=== PATIENT | female | born 1975 | race American Indian/Alaskan Native ===

== ENCOUNTER 2022-01-12 08:25 | Observation (INO) | payer MEDICARE ==
[2022-01-12] MEDS ORDERED: diphenhydrAMINE 25 MG/10 ML ORAL LIQUID PO ONE (08:44)
[2022-01-12] MEDS ORDERED: METOCLOPRAMIDE 10 MG TAB PO ONE (08:44)
--- NOTE | 2022-01-12 08:45 | Emergency Department Report ---
ED General Adult HPI - General Chief complaint: Dyspnea/Respdistress Stated complaint: Shortness of breath weakness, spitting up blood Time Seen by Provider: 01/12/22 08:37 Source: patient, EMS ( EMS documentation not available at time of chart d ictation ), RN notes reviewed, old records reviewed Mode of arrival: Stretcher Limitations: Physical Limitation - History of Present Illness Initial comments: The patient was evaluated in the emergency department for symptoms described in the history of present illness. He/she was evaluated in the context of the global COVID-19 pandemic, which necessitated consideration that the patient might be at risk for infection with the virus that causes COVID-19. Institutional protocols and algorithms that pertain to the evaluation of patients at risk for COVID-19 are in a state of rapid change based on inform ation released by regulatory bodies including the CDC and federal and state organizations. These policies and algorithms were followed during the patient's care in the emergency department. Please note that these policies, procedures and recommendations changed on a rapid basis. Nephrology: Dr. Hines/ Jonn Past medical history: End-stage renal disease on hemodialysis, Wednesday, , Wednesday, last dialysis session this past , anemia, hypertension, left upper extremity fistula, patient reports that she is not . The patient is a 46-year-old female presenting to the ER today with a complaint of shortness of breath, cramping, mild headache, weakness, and coughing up or spitting up of blood. She denies bright red blood per rectum. She denies hematemesis. She does not make urine. She was last dialyzed on , and it is currently Wednesday. She is agreeable to packed red blood cell transfusion. She reports that she feels similar to prior episodes of symptomatic anemia. She reports that she has received her COVID-19 vaccination. No fever. -: Gradual Location: head, back, left, right, upper extremity, lower extremity Severity scale (0 -10): 0 Quality: aching Consistency: intermittent Improves with: movement, rest - Related Data Home Medications Medication Instructions Recorded Confirmed Last Taken Ondansetron [Zofran TAB] 4 mg PO Q8HR PRN 03/10/14 01/13/22 Unknown Aspirin [Adult Aspirin] 81 mg PO QDAY 01/13/22 01/13/22 01/11/22 Escitalopram [Lexapro] 10 mg PO DAILY 01/13/22 01/13/22 01/11/22 Loratadine [Claritin] 10 mg PO QDAY 01/13/22 01/13/22 01/11/22 Zolpidem Tartrate 10 mg PO QHS 01/13/22 01/13/22 01/11/22 Previous Rx's Medication Instructions Recorded Last Taken Type NIFEdipine XL [Procardia Xl] 60 mg PO QDAY@0600 #30 tablet 01/13/22 Unknown Rx Nicotine [Habitrol] 14 mg TD DAILY #30 patch 01/13/22 Unknown Rx hydrALAZINE [Apresoline TAB] 100 mg PO Q8H #90 tab 01/13/22 Unknown Rx labetaloL [Labetalol 200mg TAB] 200 mg PO QID 30 Days #120 tablet 01/13/22 Unknown Rx Allergies Allergy/AdvReac Type Severity Reaction Status Date / Time acetaminophen [From Percocet] Allergy Severe Itching Verified 01/13/22 12:41 blueberry Allergy Severe Hives Verified 01/13/22 12:41 oxycodone HCl [From Percocet] Allergy Severe Itching Verified 01/13/22 12:41 ED Review of Systems ROS: Stated complaint: SOB/HYPERGLYCEMIA Other details as noted in HPI Constitutional: malaise, weakness. denies: fever Eyes: denies: eye discharge, vision change ENT: denies: epistaxis Respiratory: orthopnea, shortness of breath. denies: cough Cardiovascular: edema. denies: chest pain Gastrointestinal: denies: abdominal pain, nausea, vomiting, hematemesis, melena, hematochezia Genitourinary: denies: dysuria Musculoskeletal: arthralgia, myalgia Neurological: headache, weakness Hematological/Lymphatic: denies: easy bleeding ED Past Medical Hx - Past Medical History Hx Congestive Heart Failure: Yes Hx Renal Disease: Yes - Surgical History Past Surgical History?: No - Social History Smoking Status: Never Smoker - Medications Home Medications: Home Medications Medication Instructions Recorded Confirmed Last Taken Type Ondansetron [Zofran TAB] 4 mg PO Q8HR PRN 03/10/14 01/13/22 Unknown History Aspirin [Adult Aspirin] 81 mg PO QDAY 01/13/22 01/13/22 01/11/22 History Escitalopram [Lexapro] 10 mg PO DAILY 01/13/22 01/13/22 01/11/22 History Loratadine [Claritin] 10 mg PO QDAY 01/13/22 01/13/22 01/11/22 History NIFEdipine XL [Procardia Xl] 60 mg PO QDAY@0600 #30 tablet 01/13/22 Unknown Rx Nicotine [Habitrol] 14 mg TD DAILY #30 patch 01/13/22 Unknown Rx Zolpidem Tartrate 10 mg PO QHS 01/13/22 01/13/22 01/11/22 History hydrALAZINE [Apresoline TAB] 100 mg PO Q8H #90 tab 01/13/22 Unknown Rx labetaloL [Labetalol 200mg TAB] 200 mg PO QID 30 Days #120 tablet 01/13/22 Unknown Rx ED Physical Exam - General Limitations: Physical Limitation General appearance: alert, anxious, in distress - Head Head exam: Present: atraumatic, normocephalic - Eye Eye exam: Present: normal appearance, EOMI. Absent: nystagmus - ENT ENT exam: Present: normal exam, normal orophraynx, mucous membranes moist, normal external ear exam - Neck Neck exam: Present: normal inspection, full ROM. Absent: tenderness, mening ismus - Respiratory Respiratory exam: Present: respiratory distress, rales, accessory muscle use. Absent: wheezes, rhonchi, stridor - Cardiovascular Cardiovascular Exam: Present: regular rate, normal rhythm, normal heart sounds. Absent: bradycardia, tachycardia, irregular rhythm, systolic murmur, diastolic murmur, rubs, gallop - GI/Abdominal GI/Abdominal exam: Present: soft. Absent: distended, tenderness, guarding, rebound, rigid, pulsatile mass - Extremities Exam Extremities exam: Present: normal inspection (There is a left upper extremity fistula with an appropriate thrill.), full ROM, pedal edema, other (2+ pulses noted in the bilateral upper and lower extremities. There is no palpable cord. negative Homans sign. Muscular compartments are soft. The pelvis is stable.). Absent: calf tenderness - Back Exam Back exam: Present: normal inspection. Absent: tenderness, CVA tenderness (R), CVA tenderness (L), paraspinal tenderness, vertebral tenderness - Neurological Exam Neurological exam: Present: alert, oriented X3, other (No facial droop. Tongue midline. Extraocular movements intact bilaterally. Facial sensation intact to light touch in V1, V2, V3 distribution bilaterally. 5 and a 5 strength in 4 extremities. Sensation intact to light touch in 4 extremities.). Absent: motor sensory deficit - Psychiatric Psychiatric exam: Present: normal affect, normal mood, anxious - Skin Skin exam: Present: warm, dry, intact, normal color. Absent: rash ED Course Vital Signs 01/12/22 01/12/22 01/12/22 08:30 08:31 08:46 Temperature Pulse Rate 77 77 79 Respiratory 24 16 19 Rate Blood Pressure 190/90 Blood Pressure 190/90 [Left] O2 Sat by Pulse 100 100 100 Oximetry O2 Sat by Pulse Oximetry [ Throughout] 01/12/22 01/12/22 01/12/22 08:52 09:00 09:16 Temperature 98.2 F Pulse Rate 77 76 Respiratory 27 H 28 H Rate Blood Pressure 190/90 190/90 Blood Pressure [Left] O2 Sat by Pulse 98 99 Oximetry O2 Sat by Pulse Oximetry [ Throughout] 01/12/22 01/12/22 01/12/22 09:30 09:46 10:00 Temperature Pulse Rate 75 73 70 Respiratory 23 22 19 Rate Blood Pressure 190/90 190/90 158/78 Blood Pressure [Left] O2 Sat by Pulse 100 100 100 Oximetry O2 Sat by Pulse Oximetry [ Throughout] 01/12/22 01/12/22 01/12/22 10:16 10:30 10:46 Temperature Pulse Rate Respiratory 45 H Rate Blood Pressure 145/61 145/60 121/50 Blood Pressure [Left] O2 Sat by Pulse 100 99 100 Oximetry O2 Sat by Pulse Oximetry [ Throughout] 01/12/22 01/12/22 01/12/22 11:00 11:16 11:30 Temperature Pulse Rate 69 70 69 Respiratory 21 20 18 Rate Blood Pressure 122/55 126/54 123/63 Blood Pressure [Left] O2 Sat by Pulse 100 100 100 Oximetry O2 Sat by Pulse Oximetry [ Throughout] 01/12/22 01/12/22 01/12/22 11:31 11:46 12:00 Temperature Pulse Rate 70 72 77 Respiratory 19 16 Rate Blood Pressure 123/63 129/53 122/50 Blood Pressure [Left] O2 Sat by Pulse 100 100 Oximetry O2 Sat by Pulse Oximetry [ Throughout] 01/12/22 01/12/2222 12:15 12:43 12:46 Temperature Pulse Rate 76 Respiratory 20 Rate Blood Pressure 132/57 132/57 145/58 Blood Pressure [Left] O2 Sat by Pulse 97 91 96 Oximetry O2 Sat by Pulse Oximetry [ Throughout] 01/12/22 01/12/22 01/12/22 13:00 13:16 13:30 Temperature Pulse Rate 74 71 71 Respiratory 18 19 18 Rate Blood Pressure 162/77 138/67 146/62 Blood Pressure [Left] O2 Sat by Pulse 100 100 100 Oximetry O2 Sat by Pulse Oximetry [ Throughout] 01/12/22 01/12/22 01/12/22 13:45 14:00 14:16 Temperature Pulse Rate 71 70 70 Respiratory 18 18 19 Rate Blood Pressure 129/57 134/58 129/57 Blood Pressure [Left] O2 Sat by Pulse 100 100 100 Oximetry O2 Sat by Pulse Oximetry [ Throughout] 01/12/22 01/12/22 01/12/22 14:30 14:46 15:00 Temperature Pulse Rate 75 77 76 Respiratory 17 19 21 Rate Blood Pressure 128/57 152/71 Blood Pressure [Left] O2 Sat by Pulse 100 100 100 Oximetry O2 Sat by Pulse Oximetry [ Throughout] 01/12/22 01/12/22 01/12/22 15:15 15:31 15:45 Temperature Pulse Rate 80 82 79 Respiratory 14 16 19 Rate Blood Pressure 156/68 189/86 Blood Pressure [Left] O2 Sat by Pulse 100 100 99 Oximetry O2 Sat by Pulse Oximetry [ Throughout] 01/12/22 01/12/22 01/12/22 16:01 16:15 16:31 Temperature Pulse Rate 80 82 77 Respiratory 19 24 21 Rate Blood Pressure 167/78 176/81 160/62 Blood Pressure [Left] O2 Sat by Pulse 100 61 L 93 Oximetry O2 Sat by Pulse Oximetry [ Throughout] 01/12/22 01/12/22 01/12/22 16:50 17:00 17:15 Temperature 98.2 F Pulse Rate 74 74 74 Respiratory 18 Rate Blood Pressure 160/80 160/80 163/76 Blood Pressure [Left] O2 Sat by Pulse Oximetry O2 Sat by Pulse 98 Oximetry [ Throughout] 01/12/22 01/12/22 01/12/22 17:30 17:45 18:00 Temperature Pulse Rate 72 75 74 Respiratory Rate Blood Pressure 149/72 152/73 159/79 Blood Pressure [Left] O2 Sat by Pulse Oximetry O2 Sat by Pulse Oximetry [ Throughout] 01/12/22 01/12/22 01/12/22 18:15 18:30 18:45 Temperature Pulse Rate 76 72 78 Respiratory Rate Blood Pressure 166/81 164/88 179/58 Blood Pressure [Left] O2 Sat by Pulse Oximetry O2 Sat by Pulse Oximetry [ Throughout] 01/12/22 01/12/22 19:00 19:15 Temperature Pulse Rate 71 76 Respiratory 18 Rate Blood Pressure 164/86 183/89 Blood Pressure [Left] O2 Sat by Pulse 98 Oximetry O2 Sat by Pulse Oximetry [ Throughout] - Reevaluation(s) Reevaluation #1: 01/12/22 09:38 Differential diagnosis, including but not limited to: Azotemia, uremia, metabolic acidosis, fluid overload, pneumonia, pneumonitis, bronchitis, reactive airways disease, symptomatic anemia Assessment and plan: 46-year-old female, who has missed a dialysis session, last dialyzed on , it is currently Wednesday, presenting with shortness of breath, possibly spitting up blood, without vomiting blood, or defecation of blood, generalized weakness, malaise and fatigue. Denies loss of taste and smell. She is COVID-[address] patient on conveyor monitor. Treat symptoms supportively and symptomatically. Obtain appropriate laboratory studies, EKG and chest x-ray. Anticipate discussion with nephrology on-call, once initial diagnostics have res ulted. I discussed this plan of care with the patient. She is agreeable to the plan of care. Reevaluation #2: 01/12/22 11:13 Patient seen and examined. Please note that secondary to technical issues with the lab, patient's chemistry had to be recollected. She is mildly anemic, but does not require packed red blood cell transfusion at this time. X-ray of the chest with nonspecific findings, uncertain if atelectatic changes versus pneumonia versus CHF. New medium sternotomy and valve prosthesis. New endovascular stent graft extending from the aortic arch to the proximal abdominal aorta. Mild cardiomegaly, improved since the prior exam. Normal pulmonary vasculature. LUNGS / PLEURA: Mild patchy subsegmental parenchymal disease in the left lower lung is new. The right lung is clear. No pleural effusion. No pneumothorax. We will obtain CT angiogram of the chest. We will do this to better delineate patient's pulmonary anatomy. Contacted nephrology on-call, Dr. Cherry Discussed the patient's history, physical, laboratory studies and imaging studies and clinical impression. Nephrology will follow in consultation. Emergency room follow along as the patient CT scan results. 01/12/22 11:15 Reevaluation #3: 01/12/22 12:44 I received a call from the senior nuclear medicine technologist that the patient has a change in mental status while on the CAT scan table, after her CT scan chest. I went back emergently to evaluate the patient. She is awake and confused, and making nonsensical myoclonic jerking movements. An emergent CT scan of the brain is obtained to exclude bleed. I do not appreciate a bleed. A stat Accu-Chek read very low. Patient received 2 A of D50, with immediate resolution of symptoms. Patient is now awake, alert, and following commands. Every hour Accu-Cheks ordered. Start D10 drip. Awaiting CT scan interpretation. Patient reports that she does not take hypoglycemic medications. 01/12/22 13:31 Repeat Accu-Chek is improved. CT scan brain negative for acute findings. CT scan chest shows no obvious pulmonary embolism. Aspiration pneumonia/pneumonitis is suggested. I received a verbal report from the interpreting radiologist. Hospital physician, Dr. Mayela Metcalf to admit to [facility] 01/12/22 14:33 I received another call from interpreting radiologist, Dr. Anne. He advises an addendum to previous verbal interpretation. He corrects initial interpretation, and states that there is no pneumonitis, no aspiration, no pulmonary embolism, and only atelectatic changes. We will therefore cancel blood cultures and lactic acid. Patient still requires admission for hypoglycemia. Patient received antibiotics dose x1. Defer to inpatient team to further manage and evaluate ED Medical Decision Making - Lab Data Result diagrams: 01/13/22 03:39 01/13/22 03:39 Vital Signs 01/12/22 01/12/22 08:30 08:52 Temperature 98.2 F Pulse Rate 77 Respiratory 24 Rate Blood Pressure 190/90 [Left] O2 Sat by Pulse 100 Oximetry Lab Results 01/12/22 01/12/22 01/12/22 Range/Units 09:18 09:18 10:10 WBC 8.8 (4.5-11.0) K/mm3 RBC 2.76 L (3.65-5.03) M/mm3 Hgb 8.8 L (10.1-14.3) gm/dl Hct 26.6 L (30.3-42.9) % MCV 96 (79-97) fl MCH 32 (28-32) pg MCHC 33 (30-34) % RDW 17.6 H (13.2-15.2) % Plt Count 292 (140-440) K/mm3 Add Manual Diff Complete Total Counted 100 Seg Neutrophils % Employment Service Specialist Seg Neuts % (Manual) 90.0 H (40.0-70.0) % Band Neutrophils % 0 % Lymphocytes % (Manual) 3.0 L (13.4-35.0) % Reactive Lymphs % (Man) 0 % Monocytes % (Manual) 7.0 (0.0-7.3) % Eosinophils % (Manual) 0 (0.0-4.3) % Basophils % (Manual) 0 (0.0-1.8) % Metamyelocytes % 0 % Myelocytes % 0 % Promyelocytes % 0 % Blast Cells % 0 % Nucleated RBC % Not Reportable Seg Neutrophils # Man 7.9 H (1.8-7.7) K/mm3 Band Neutrophils # 0.0 K/mm3 Lymphocytes # (Manual) 0.3 L (1.2-5.4) K/mm3 Abs React Lymphs (Man) 0.0 K/mm3 Monocytes # (Manual) 0.6 (0.0-0.8) K/mm3 Eosinophils # (Manual) 0.0 (0.0-0.4) K/mm3 Basophils # (Manual) 0.0 (0.0-0.1) K/mm3 Metamyelocytes # 0.0 K/mm3 Myelocytes # 0.0 K/mm3 Promyelocytes # 0.0 K/mm3 Blast Cells # 0.0 K/mm3 WBC Morphology Not Reportable Hypersegmented Neuts Not Reportable Hyposegmented Neuts Not Reportable Hypogranular Neuts Not Reportable Smudge Cells Not Reportable Toxic Granulation Not Reportable Toxic Vacuolation Not Reportable Dohle Bodies Not Reportable Pelger-Huet Anomaly Not Reportable Farrukh Rods Not Reportable Platelet Estimate Consistent w auto Clumped Platelets Not Reportable Plt Clumps, EDTA Not Reportable Large Platelets Rare Giant Platelets Not Reportable Platelet Satelliting Not Reportable Plt Morphology Comment Not Reportable RBC Morphology Not Reportable Dimorphic RBCs Not Reportable Polychromasia Rare Hypochromasia 1+ Poikilocytosis Rare Anisocytosis Rare Microcytosis Not Reportable Macrocytosis Not Reportable Spherocytes Not Reportable Pappenheimer Bodies Not Reportable Sickle Cells Not Reportable Target Cells Not Reportable Tear Drop Cells Not Reportable Ovalocytes Rare Helmet Cells Not Reportable [place] Bodies Not Reportable [place] Rings Not Reportable Kristie Cells Not Reportable Bite Cells Not Reportable Crenated Cell Not Reportable Elliptocytes Not Reportable Acanthocytes (Spur) Rare Rouleaux Not Reportable Hemoglobin C Crystals Not Reportable Schistocytes Not Reportable Malaria parasites Not Reportable Syed Bodies Not Reportable Hem Pathologist Commnt No PT 14.1 (12.2-14.9) Sec. INR 0.98 (0.87-1.13) APTT 30.2 (24.2-36.6) Sec. Sodium TNR Potassium TNR Chloride TNR Carbon Dioxide TNR Anion Gap TNR BUN TNR Creatinine TNR Estimated GFR TNR BUN/Creatinine Ratio TNR Glucose TNR Calcium TNR Magnesium TNR Total Bilirubin TNR AST TNR ALT TNR Alkaline Phosphatase TNR Total Creatine Kinase Troponin T TNR NT-Pro-B Natriuret Pep TNR Total Protein TNR Albumin TNR Albumin/Globulin Ratio TNR Blood Type Antibody Screen 01/12/22 01/12/22 Range/Units 10:10 10:56 WBC (4.5-11.0) K/mm3 RBC (3.65-5.03) M/mm3 Hgb (10.1-14.3) gm/dl Hct (30.3-42.9) % MCV (79-97) fl MCH (28-32) pg MCHC (30-34) % RDW (13.2-15.2) % Plt Count (140-440) K/mm3 Add Manual Diff Total Counted Seg Neutrophils % Seg Neuts % (Manual) (40.0-70.0) % Band Neutrophils % % Lymphocytes % (Manual) (13.4-35.0) % Reactive Lymphs % (Man) % Monocytes % (Manual) (0.0-7.3) % Eosinophils % (Manual) (0.0-4.3) % Basophils % (Manual) (0.0-1.8) % Metamyelocytes % % Myelocytes % % Promyelocytes % % Blast Cells % % Nucleated RBC % Seg Neutrophils # Man (1.8-7.7) K/mm3 Band Neutrophils # K/mm3 Lymphocytes # (Manual) (1.2-5.4) K/mm3 Abs React Lymphs (Man) K/mm3 Monocytes # (Manual) (0.0-0.8) K/mm3 Eosinophils # (Manual) (0.0-0.4) K/mm3 Basophils # (Manual) (0.0-0.1) K/mm3 Metamyelocytes # K/mm3 Myelocytes # K/mm3 Promyelocytes # K/mm3 Blast Cells # K/mm3 WBC Morphology Hypersegmented Neuts Hyposegmented Neuts Hypogranular Neuts Smudge Cells Toxic Granulation Toxic Vacuolation Dohle Bodies Pelger-Huet Anomaly Farrukh Rods Platelet Estimate Clumped Platelets Plt Clumps, EDTA Large Platelets Giant Platelets Platelet Satelliting Plt Morphology Comment RBC Morphology Dimorphic RBCs Polychromasia Hypochromasia Poikilocytosis Anisocytosis Microcytosis Macrocytosis Spherocytes Pappenheimer Bodies Sickle Cells Target Cells Tear Drop Cells Ovalocytes Helmet Cells Snider-[place] Bodies [place] Rings [place] Cells Bite Cells Crenated Cell Elliptocytes Acanthocytes (Spur) Rouleaux Hemoglobin C Crystals Schistocytes Malaria parasites Syed Bodies Hem Pathologist Commnt PT (12.2-14.9) Sec. INR (0.87-1.13) APTT (24.2-36.6) Sec. Sodium 137 Potassium 3.5 L Chloride 96.5 L Carbon Dioxide 23 Anion Gap 21 BUN 54 H Creatinine 9.1 H Estimated GFR 6 BUN/Creatinine Ratio 6 Glucose 107 H Calcium 8.6 Magnesium 2.20 Total Bilirubin 0.40 AST 12 ALT 6 L Alkaline Phosphatase 92 Total Creatine Kinase Not Reportable Troponin T NT-Pro-B Natriuret Pep 53289 H Total Protein 8.1 Albumin 4.5 Albumin/Globulin Ratio 1.3 Blood Type O POSITIVE Antibody Screen Negative - EKG Data -: EKG Interpreted by Mi EKG shows normal: sinus rhythm Rate: normal - EKG Data 01/12/22 10:00 The EKG is interpreted at 09: 49 Motion artifact. Sinus rhythm 73 bpm. Normal axis, normal P wave axis, QTC is 4 9 7 ms. There is motion artifact. This is an abnormal EKG. This is not a STEMI. There is left ventricular hypertrophy/high left ventricular voltage - Radiology Data Radiology results: pending, report reviewed, image reviewed CHEST 1 VIEW 01/12/2022 9:13 AM INDICATION / CLINICAL INFORMATION: Dyspnea. COMPARISON: 03/10/14. FINDINGS: SUPPORT DEVICES: None. HEART / MEDIASTINUM: New medium sternotomy and valve prosthesis. New endovascular stent graft extending from the aortic arch to the proximal abdominal aorta. Mild cardiomegaly, improved since the prior exam. Normal pulmonary vasculature. LUNGS / PLEURA: Mild patchy subsegmental parenchymal disease in the left lower lung is new. The right lung is clear. No pleural effusion. No pneumothorax. ADDITIONAL FINDINGS: Mild elevation of the left hemidiaphragm is new. IMPRESSION: Mild elevation of the left hemidiaphragm and mild left basilar subsegmental atelectasis. Signer Name: Tank Anne MD Signed: 01/12/2022 9:21 AM Workstation Name: [id number] CT HEAD WITHOUT CONTRAST INDICATION / CLINICAL INFORMATION: Change in mental status, unresponsiveness. TECHNIQUE: All CT scans at this location are performed using CT dose reduction for ALARA by means of automated exposure control. COMPARISON: None available. FINDINGS: HEMORRHAGE: None. EXTRA-AXIAL SPACES: Normal in size and morphology for the patient's age. VENTRICULAR SYSTEM: Normal in size and morphology for the patient's age. CEREBRAL PARENCHYMA: No significant abnormality. No acute territorial infarct. MIDLINE SHIFT / HERNIATION: None. CEREBELLUM / BRAINSTEM: No significant abnormality. ORBITS: Normal as visualized. SOFT TISSUES: No significant abnormality. SKULL: No significant abnormality. PARANASAL SINUSES / MASTOID AIR CELLS: Normal as visualized. ADDITIONAL FINDINGS: Intravascular contrast is related to the earlier CTA of the chest. IMPRESSION: No acute intracranial abnormality. Signer Name: Tank Anne MD Signed: 01/12/2022 12:00 PM Critical Care Time: Yes Critical care time in (mins) excluding proc time.: 35 Critical care attestation.: If time is entered above; I have spent that time in minutes in the direct care of this critically ill patient, excluding procedure time. ED Disposition Clinical Impression: ESRD (end stage renal disease), Dyspnea, Hemoptysis, Hypertensive urgency, Hypoglycemia Anemia Qualifiers: Anemia type: due to chronic kidney disease Disposition: 09 ADMITTED INPATIENT Is pt being admited?: Yes Does the pt Need Aspirin: No Condition: Serious
[2022-01-12 09:43] LABS: Hematocrit 26.6 % (30.3-42.9); Hemoglobin 8.8 gm/dl (10.1-14.3); Mean Corpuscular HGB Conc 33 % (30-34); Mean Corpuscular Volume 96 fl (79-97); Platelet Count 292 K/mm3 (140-440); Red Blood Count 2.76 M/mm3 (3.65-5.03); Red Cell Distribution Width 17.6 % (13.2-15.2)
[2022-01-12 10:08] LABS: BUN/Creatinine Ratio TNR; Blood Urea Nitrogen TNR mg/dL (7-17); Calcium TNR mg/dL (8.4-10.2)
[2022-01-12 10:09] LABS: Alanine Aminotransferase TNR units/L (7-56); Albumin TNR g/dL (3.9-5); Hemolysis Index TNR
[2022-01-12 10:22] LABS: Basophils % (Manual) 0 % (0.0-1.8); Eosinophils % (Manual) 0 % (0.0-4.3); Total Cells Counted 100
--- NOTE | 2022-01-12 10:25 | XRay Report ---
CHEST 1 VIEW 01/12/2022 9:13 AM INDICATION / CLINICAL INFORMATION: Dyspnea. COMPARISON: 03/10/14. FINDINGS: SUPPORT DEVICES: None. HEART / MEDIASTINUM: New medium sternotomy and valve prosthesis. New endovascular stent graft extendi ng from the aortic arch to the proximal abdominal aorta. Mild cardiomegaly, improved since the prior exam. Normal pulmonary vasculature. LUNGS / PLEURA: Mild patchy subsegmental parenchymal disease in the left lower lung is new. The right lung is clear. No pleural effusion. No pneumothorax. ADDITIONAL FINDINGS: Mild elevation of the left hemidiaphragm is new. IMPRESSION: Mild elevation of the left hemidiaphragm and mild left basilar subsegmental atelectasis. Signer Name: Tank Anne MD Signed: 01/12/2022 10:21 AM Workstation Name: [id number]
[2022-01-12 10:27] LABS: Anisocytosis RARE; Hypochromasia 1+; Poikilocytosis Rare
[2022-01-12 10:28] LABS: Large Platelets Rare; Ovalocytes Rare; Platelet Estimate Consistent w Auto
[2022-01-12 10:38] LABS: INR 0.98 (0.87-1.13)
[2022-01-12 10:39] LABS: Partial Thromboplastin Time 30.2 Sec. (24.2-36.6)
[2022-01-12 11:06] LABS: Alanine Aminotransferase 6 units/L (7-56); BUN/Creatinine Ratio 6; Blood Urea Nitrogen 54 mg/dL (7-17); Calcium 8.6 mg/dL (8.4-10.2)
[2022-01-12 11:07] LABS: Albumin 4.5 g/dL (3.9-5); Hemolysis Index 8
[2022-01-12] MEDS ORDERED: hydrALAZINE 20 MG/1 ML INJ IV ONE (11:15)
[2022-01-12] MEDS ORDERED: DEXTROSE 50% IN WATER (25GM) 50 ML SYRINGE IV ONE ×2 (12:36→12:41)
[2022-01-12] MEDS: DEXTROSE 50% IN WATER (25GM) 50 ML SYRINGE IV PRN ×2 (12:49→22:34)
[2022-01-12] MEDS ORDERED: D10W 500 ML IV SOLN IV SCH (13:00)
[2022-01-12] MEDS ORDERED: DEXTROSE 10% IN WATER 1,000 ML IV SCH (13:00)
--- NOTE | 2022-01-12 13:04 | Cat Scan Report ---
CT HEAD WITHOUT CONTRAST INDICATION / CLINICAL INFORMATION: Change in mental status, unresponsiveness. TECHNIQUE: All CT scans at this location are performed using CT dose reduction for ALARA by means of automated exposure control. COMPARISON: None available. FINDINGS: HEMORRHAGE: None. EXTRA-AXIAL SPACES: Normal in size and morphology for the patient's age. VENTRICULAR SYSTEM: Normal in size and morphology for the patient's age. CEREBRAL PARENCHYMA: No significant abnormality. No acute territorial infarct. MIDLINE SHIFT / HERNIATION: None. CEREBELLUM / BRAINSTEM: No significant abnormality. ORBITS: Normal as visualized. SOFT TISSUES: No significant abnormality. SKULL: No significant abnormality. PARANASAL SINUSES / MASTOID AIR CELLS: Normal as visualized. ADDITIONAL FINDINGS: Intravascular contrast is related to the earlier CTA of the chest. IMPRESSION: No acute intracranial abnormality. Signer Name: Tank Anne MD Signed: 01/12/2022 1:00 PM Workstation Name: [id number]
[2022-01-12] MEDS ORDERED: PIPERACIL/TAZOBACTA 4.5/NS 100 4.5 GM/100 ML VIAL IV ONE (13:28)
[2022-01-12] MEDS ORDERED: DOXYCYCLINE HYCLATE 100 MG in SODIUM CHLORIDE 0.9% 250ML 250 ML IV ONE (14:30)
--- NOTE | 2022-01-12 14:38 | Cat Scan Report ---
CTA CHEST WITH CONTRAST INDICATION / CLINICAL INFORMATION: Dyspnea; spitting up blood. TECHNIQUE: Axial CT images were obtained through the chest after injection of 80 cc Omnipaque 350 IV contrast. 3 plane MIP and/or 3D reconstructions were produced. All CT scans at this location are perf ormed using CT dose reduction for ALARA by means of automated exposure control. COMPARISON: None available. FINDINGS: PULMONARY EMBOLUS: None. Good opacification of the pulmonary arterial system bilaterally without intr aluminal filling defect to suggest acute PTE. THORACIC AORTA: Endoluminal stent graft in the thoracic aorta with evidence of prior type B dissectio n. HEART: Moderate cardiomegaly. CORONARY ARTERY CALCIFICATION: Present -- Moderate. MEDIASTINUM / DANYEL: No significant abnormality. PLEURA: No pleural effusion. No pneumothorax. LUNGS: Mild subsegmental atelectasis in the left lung base. ADDITIONAL FINDINGS: None. UPPER ABDOMEN: No acute findings. SKELETAL STRUCTURES: No significant osseous abnormality. IMPRESSION: 1. No CT evidence for pulmonary embolism. 2. No acute findings. Signer Name: Tank Anne MD Signed: 01/12/2022 2:33 PM Workstation Name: [id number]
--- NOTE | 2022-01-12 16:06 | Consultation ---
History of Present Illness - Reason for Consult Consult date: 01/12/22 end stage renal disease - History of Present Illness This is a 46 y/o F with PMH of ESRD on HD, HTN, and anemia who presented to [facility] ([facility]) with c/o shortness of breath, altered mental status, fatigue, generalized weakness, headache, and spitting up blood. Pt seen in ED, lethargic, answers basic questions, but delayed response. Pt's friend states she noticed pt had blood on the outside of her mouth and on the bed with mucus in her nose and altered mental status. This pt undergoes OP HD at [facility], last HD treatment was 01/08/22, missed HD on Wednesday due to transportation per friend. Pt is followed by manager pediatric Dr Hines. Pt on D10 infusion. CXR showed mild elevation of left hemidiaphragm and mild left basilar subsegmental atelactasis. CTA chest IV contrast negative for PE, no acute findings. We were consulted to evaluate this pt who has ESRD. Pt had suspected seizure in the ED per friend and nurse Past History Past Medical History: anemia, dialysis, ESRD, hypertension Medications and Allergies Allergies Allergy/AdvReac Type Severity Reaction Status Date / Time acetaminophen [From Percocet] Allergy Itching Verified 01/12/22 09:20 oxycodone HCl [From Percocet] Allergy Itching Verified 01/12/22 09:20 Home Medications Medication Instructions Recorded Confirmed Last Taken Type Hydralazine HCl [hydrALAZINE] 100 mg PO TID 03/10/14 03/10/14 03/10/14 History Mag Hydrox/Aluminum Hyd/Simeth 30 ml PO QID #1 bottle 03/10/14 Unknown Rx [Maalox Advanced Suspension] NIFEdipine XL [Procardia Xl] 60 mg PO QDAY 03/10/14 03/10/14 03/09/14 History Omeprazole [Prilosec] 20 mg PO QDAY #30 capsule. 03/10/14 Unknown Rx Ondansetron [Zofran] 4 mg PO Q8HR PRN 03/10/14 03/10/14 Unknown History Promethazine [Phenergan] 25 mg PO Q6H PRN 03/10/14 03/10/14 Unknown History labetaloL [Normodyne] 200 mg PO QID 03/10/14 03/10/14 03/10/14 History Active Meds: Active Medications Dextrose (Dextrose 50% In Water (25gm) 50 Ml Syringe) 50 ml IV Q30MIN PRN; Protocol PRN Reason: Hypoglycemia Last Admin: 01/12/22 12:49 Dose: 50 ml Dextrose (D10w) 1,000 mls @ 100 mls/hr IV DIRECT SUMMER Review of Systems Constitutional: fatigue, weakness, lethargy Cardiovascular: shortness of breath, no chest pain Respiratory: shortness of breath, other (spitting up blood) Gastrointestinal: no abdominal pain, no nausea, no vomiting, no diarrhea, no constipation, no coffee ground emesis Integumentary: no wounds Neurological: weakness, seizures, headaches, change in mentation Exam - Vital Signs Vital signs: Vital Signs Pulse Resp BP Pulse Ox 77 24 190/90 100 01/12/22 08:30 01/12/22 08:30 01/12/22 08:30 01/12/22 08:30 - General Appearance General appearance: other (lethargic) Respiratory: Decreased Breath Sounds Heart: S1S2, other (ACCESS: Left AVF + thrill and bruit) Gastrointestinal: Present: normoactive bowel sounds. Absent: tenderness Integumentary: warm and dry Neurologic: other (lethargic, oriented to person, place, and year, confusion) Musculoskeletal: Present: other (trace edema to BLE) Results - Lab Results 01/12/22 09:18 01/12/22 10:56 Most recent lab results Calcium 8.6 mg/dL (8.4-10.2) 01/12/22 10:56 Magnesium 2.20 mg/dL (1.7-2.3) 01/12/22 10:56 Assessment and Plan ESRD on HD Suspected Seizure Altered mental status Hypoglycemia Hemoptysis HTN Anemia Hypokalemia Plan: -HD today for gentle UF and clearance, no heparin during HD -HD prescription adjusted to 3[facility] [place] -Assess need for HD on daily basis -Anticipate HD again tomorrow, but we will evaluate pt tomorrow and order HD if needed -Hold off on administering ERNA for now given suspected seizure -On D10 infusion for hypoglycemia -On renal diet -Start fluid restriction of 1L per day -Renally dose meds -Strict intake and output -This pt undergoes OP HD at [facility] -Renal plan reviewed by Dr Person
--- NOTE | 2022-01-12 16:12 | History and Physical Report ---
History of Present Illness Date of examination: 01/12/22 Date of admission: 01/12/2022 Chief complaint: Increasing shortness of breath for 2 days History of present illness: 46-year-old female with history of hypertension and end-stage renal disease needing hemodialysis session this past Wednesday. She had dialysis on . Today is Wednesday. Patient has a history of end-stage renal disease, hypertension, anemia. Shortness of breath on minimal exertion. No fever or chills. Orthopnea present. Patient is vaccinated against COVID. 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 ER physician has presented to me as possible aspiration pneumonia which was not confirmed. No fever or chills. No pneumonitis on the chest x-ray. - Past Medical History --Congestive Heart Failure: Yes --Renal Disease: Yes - Surgical History --Past Surgical History?: No - Social History --Smoking Status: Never Smoker - Medications --Home Medications: Home Medications Medication Instructions Recorded Confirmed Last Taken Type Hydralazine HCl [hydrALAZINE] 100 mg PO TID 03/10/14 03/10/14 03/10/14 History Mag Hydrox/Aluminum Hyd/Simeth 30 ml PO QID #1 bottle 03/10/14 Unknown Rx [Maalox Advanced Suspension] NIFEdipine XL [Procardia Xl] 60 mg PO QDAY 03/10/14 03/10/14 03/09/14 History Omeprazole [Prilosec] 20 mg PO QDAY #30 capsule. 03/10/14 Unknown Rx Ondansetron [Zofran] 4 mg PO Q8HR PRN 03/10/14 03/10/14 Unknown History Promethazine [Phenergan] 25 mg PO Q6H PRN 03/10/14 03/10/14 Unknown History labetaloL [Normodyne] 200 mg PO QID 03/10/14 03/10/14 03/10/14 History Review of Systems ROS: Stated complaint: SOB/HYPERGLYCEMIA Other details as noted in HPI Constitutional: malaise, weakness. denies: fever Eyes: denies: eye discharge, vision change ENT: denies: epistaxis Respiratory: orthopnea, shortness of breath. denies: cough Cardiovascular: edema. denies: chest pain Gastrointestinal: denies: abdominal pain, nausea, vomiting, hematemesis, melena, hematochezia Genitourinary: denies: dysuria Musculoskeletal: arthralgia, myalgia Neurological: headache, weakness Hematological/Lymphatic: denies: easy bleeding Medications and Allergies Allergies Allergy/AdvReac Type Severity Reaction Status Date / Time acetaminophen [From Percocet] Allergy Itching Verified 01/12/22 09:20 oxycodone HCl [From Percocet] Allergy Itching Verified 01/12/22 09:20 Home Medications Medication Instructions Recorded Confirmed Last Taken Type Hydralazine HCl [hydrALAZINE] 100 mg PO TID 03/10/14 03/10/14 03/10/14 History Mag Hydrox/Aluminum Hyd/Simeth 30 ml PO QID #1 bottle 03/10/14 Unknown Rx [Maalox Advanced Suspension] NIFEdipine XL [Procardia Xl] 60 mg PO QDAY 03/10/14 03/10/14 03/09/14 History Omeprazole [Prilosec] 20 mg PO QDAY #30 capsule.dr 03/10/14 Unknown Rx Ondansetron [Zofran] 4 mg PO Q8HR PRN 03/10/14 03/10/14 Unknown History Promethazine [Phenergan] 25 mg PO Q6H PRN 03/10/14 03/10/14 Unknown History labetaloL [Normodyne] 200 mg PO QID 03/10/14 03/10/14 03/10/14 History Active Meds: Active Medications Dextrose (Dextrose 50% In Water (25gm) 50 Ml Syringe) 50 ml IV Q30MIN PRN; Protocol PRN Reason: Hypoglycemia Last Admin: 01/12/22 12:49 Dose: 50 ml Dextrose (D10w) 1,000 mls @ 100 mls/hr IV DIRECT SUMMER Exam - Constitutional Vitals: Temp Pulse Resp BP Pulse Ox 98.2 F 70 24 123/63 100 01/12/22 08:52 01/12/22 11:31 01/12/22 08:30 01/12/22 11:31 01/12/22 08:30 General appearance: Present: no acute distress, well-nourished - EENT Eyes: Present: PERRL ENT: hearing intact, clear oral mucosa - Neck Neck: Present: supple, normal ROM - Respiratory Respiratory effort: normal Respiratory: bilateral: CTA, rhonchi (Scattered) - Cardiovascular Heart rate: 78 Rhythm: regular Heart Sounds: Present: S1 & S2. Absent: rub, click - Extremities Extremities: pulses symmetrical, No edema Peripheral Pulses: within normal limits - Abdominal General gastrointestinal: Present: soft, non-tender, non-distended, normal bowel sounds Female genitourinary: Present: normal - Integumentary Integumentary: Present: clear, warm, dry - Musculoskeletal Musculoskeletal: gait normal, strength equal bilaterally - Psychiatric Psychiatric: appropriate mood/affect, intact judgment & insight - Neurologic Neurologic: CNII-XII intact, moves all extremities - Allied Health Allied health notes reviewed: nursing, case management HEART Score - HEART Score History: Moderately suspicious EKG: Non-specific Age: 45-65 Risk factors: 1-2 risk factors Troponin: Troponin T TNR 01/12/22 09:18 Troponin: 1-3x normal limit HEART Score: 5 - Critical Actions Critical Actions: 4-6 pts:12-16.6% risk of adverse cardiac event. Should be admitted Results - Labs CBC & Chem 7: 01/13/22 03:39 01/13/22 03:39 Labs: Laboratory Last Values WBC 8.8 K/mm3 (4.5-11.0) 01/12/22 09:18 RBC 2.76 M/mm3 (3.65-5.03) L 01/12/22 09:18 Hgb 8.8 gm/dl (10.1-14.3) L 01/12/22 09:18 Hct 26.6 % (30.3-42.9) L 01/12/22 09:18 MCV 96 fl (79-97) 01/12/22 09:18 MCH 32 pg (28-32) 01/12/22 09:18 MCHC 33 % (30-34) 01/12/22 09:18 RDW 17.6 % (13.2-15.2) H 01/12/22 09:18 Plt Count 292 K/mm3 (140-440) 01/12/22 09:18 Add Manual Diff Complete 01/12/22 09:18 Total Counted 100 01/12/22 09:18 Seg Neutrophils % Plastic Fixture Builder 01/12/22 09:18 Seg Neuts % (Manual) 90.0 % (40.0-70.0) H 01/12/22 09:18 Band Neutrophils % 0 % 01/12/22 09:18 Lymphocytes % (Manual) 3.0 % (13.4-35.0) L 01/12/22 09:18 Reactive Lymphs % (Man) 0 % 01/12/22 09:18 Monocytes % (Manual) 7.0 % (0.0-7.3) 01/12/22 09:18 Eosinophils % (Manual) 0 % (0.0-4.3) 01/12/22 09:18 Basophils % (Manual) 0 % (0.0-1.8) 01/12/22 09:18 Metamyelocytes % 0 % 01/12/22 09:18 Myelocytes % 0 % 01/12/22 09:18 Promyelocytes % 0 % 01/12/22 09:18 Blast Cells % 0 % 01/12/22 09:18 Nucleated RBC % Not Reportable 01/12/22 09:18 Seg Neutrophils # Man 7.9 K/mm3 (1.8-7.7) H 01/12/22 09:18 Band Neutrophils # 0.0 K/mm3 01/12/22 09:18 Lymphocytes # (Manual) 0.3 K/mm3 (1.2-5.4) L 01/12/22 09:18 Abs React Lymphs (Man) 0.0 K/mm3 01/12/22 09:18 Monocytes # (Manual) 0.6 K/mm3 (0.0-0.8) 01/12/22 09:18 Eosinophils # (Manual) 0.0 K/mm3 (0.0-0.4) 01/12/22 09:18 Basophils # (Manual) 0.0 K/mm3 (0.0-0.1) 01/12/22 09:18 Metamyelocytes # 0.0 K/mm3 01/12/22 09:18 Myelocytes # 0.0 K/mm3 01/12/22 09:18 Promyelocytes # 0.0 K/mm3 01/12/22 09:18 Blast Cells # 0.0 K/mm3 01/12/22 09:18 WBC Morphology Not Reportable 01/12/22 09:18 Hypersegmented Neuts Not Reportable 01/12/22 09:18 Hyposegmented Neuts Not Reportable 01/12/22 09:18 Hypogranular Neuts Not Reportable 01/12/22 09:18 Smudge Cells Not Reportable 01/12/22 09:18 Toxic Granulation Not Reportable 01/12/22 09:18 Toxic Vacuolation Not Reportable 01/12/22 09:18 Dohle Bodies Not Reportable 01/12/22 09:18 Pelger-Huet Anomaly Not Reportable 01/12/22 09:18 Farrukh Rods Not Reportable 01/12/22 09:18 Platelet Estimate Consistent w auto 01/12/22 09:18 Clumped Platelets Not Reportable 01/12/22 09:18 Plt Clumps, EDTA Not Reportable 01/12/22 09:18 Large Platelets Rare 01/12/22 09:18 Giant Platelets Not Reportable 01/12/22 09:18 Platelet Satelliting Not Reportable 01/12/22 09:18 Plt Morphology Comment Not Reportable 01/12/22 09:18 RBC Morphology Not Reportable 01/12/22 09:18 Dimorphic RBCs Not Reportable 01/12/22 09:18 Polychromasia Rare 01/12/22 09:18 Hypochromasia 1+ 01/12/22 09:18 Poikilocytosis Rare 01/12/22 09:18 Anisocytosis Rare 01/12/22 09:18 Microcytosis Not Reportable 01/12/22 09:18 Macrocytosis Not Reportable 01/12/22 09:18 Spherocytes Not Reportable 01/12/22 09:18 Pappenheimer Bodies Not Reportable 01/12/22 09:18 Sickle Cells Not Reportable 01/12/22 09:18 Target Cells Not Reportable 01/12/22 09:18 Tear Drop Cells Not Reportable 01/12/22 09:18 Ovalocytes Rare 01/12/22 09:18 Helmet Cells Not Reportable 01/12/22 09:18 [place] Bodies Not Reportable 01/12/22 09:18 [place] Rings Not Reportable 01/12/22 09:18 [place] Cells Not Reportable 01/12/22 09:18 Bite Cells Not Reportable 01/12/22 09:18 Crenated Cell Not Reportable 01/12/22 09:18 Elliptocytes Not Reportable 01/12/22 09:18 Acanthocytes (Spur) Rare 01/12/22 09:18 Rouleaux Not Reportable 01/12/22 09:18 Hemoglobin C Crystals Not Reportable 01/12/22 09:18 Schistocytes Not Reportable 01/12/22 09:18 Malaria parasites Not Reportable 01/12/22 09:18 Syed Bodies Not Reportable 01/12/22 09:18 Hem Pathologist Commnt No 01/12/22 09:18 PT 14.1 Sec. (12.2-14.9) 01/12/22 10:10 INR 0.98 (0.87-1.13) 01/12/22 10:10 APTT 30.2 Sec. (24.2-36.6) 01/12/22 10:10 Sodium 137 mmol/L (137-145) 01/12/22 10:56 Potassium 3.5 mmol/L (3.6-5.0) L 01/12/22 10:56 Chloride 96.5 mmol/L (98-107) L 01/12/22 10:56 Carbon Dioxide 23 mmol/L (22-30) 01/12/22 10:56 Anion Gap 21 mmol/L 01/12/22 10:56 BUN 54 mg/dL (7-17) H 01/12/22 10:56 Creatinine 9.1 mg/dL (0.6-1.2) H 01/12/22 10:56 Estimated GFR 6 ml/min 01/12/22 10:56 BUN/Creatinine Ratio 6 % 01/12/22 10:56 Glucose 107 mg/dL (65-100) H 01/12/22 10:56 POC Glucose 178 mg/dL (70-105) H 01/12/22 15:45 Calcium 8.6 mg/dL (8.4-10.2) 01/12/22 10:56 Magnesium 2.20 mg/dL (1.7-2.3) 01/12/22 10:56 Total Bilirubin 0.40 mg/dL (0.1-1.2) 01/12/22 10:56 AST 12 units/L (5-40) 01/12/22 10:56 ALT 6 units/L (7-56) L 01/12/22 10:56 Alkaline Phosphatase 92 units/L (35-129) 01/12/22 10:56 Total Creatine Kinase Not Reportable 01/12/22 10:56 Troponin T TNR 01/12/22 09:18 NT-Pro-B Natriuret Pep 52457 pg/mL (0-450) H 01/12/22 10:56 Total Protein 8.1 g/dL (6.3-8.2) 01/12/22 10:56 Albumin 4.5 g/dL (3.9-5) 01/12/22 10:56 Albumin/Globulin Ratio 1.3 % 01/12/22 10:56 Blood Type O POSITIVE 01/12/22 10:10 Antibody Screen Negative 01/12/22 10:10 Short CBC 01/12/22 01/13/22 Range/Units 09:18 03:39 WBC 8.8 6.7 (4.5-11.0) K/mm3 Hgb 8.8 L 8.2 L (10.1-14.3) gm/dl Hct 26.6 L 24.7 L (30.3-42.9) % Plt Count 292 265 (140-440) K/mm3 BMP 01/12/22 01/12/22 01/13/22 09:18 10:56 03:39 Sodium TNR 137 139 Potassium TNR 3.5 L 3.5 L Chloride TNR 96.5 L 93.6 L Carbon Dioxide TNR 23 27 BUN TNR 54 H 20 H Creatinine TNR 9.1 H 4.6 H Glucose TNR 107 H 55 L Calcium TNR 8.6 8.9 Cardiac Enzymes 01/12/22 01/12/22 Range/Units 09:18 10:56 Total Creatine Kinase Not Reportable Troponin T TNR Liver Function 01/12/22 01/12/22 01/13/22 Range/Units 09:18 10:56 03:39 Total Bilirubin TNR 0.40 0.50 AST TNR 12 16 ALT TNR 6 L 6 L Alkaline Phosphatase TNR 92 98 Albumin TNR 4.5 4.5 Assessment and Plan Advance Directives: Yes (Full code) VTE prophylaxis?: Chemical Plan of care discussed with patient/family: Yes - Patient Problems (1) Volume overload Current Visit: Yes Status: Acute Plan to address problem: Patient needs emergent hemodialysis Nephrology consulted Increased ultrafiltration for removal of volume (2) End-stage renal disease on hemodialysis Current Visit: Yes Status: Chronic Plan to address problem: Emergent hemodialysis requested (3) Hypertension Current Visit: Yes Status: Chronic Qualifiers: Hypertension type: primary hypertension Qualified Code(s): I10 - Essential (primary) hypertension Plan to address problem: Continue antihypertensives and adjust medications as necessary (4) Anemia Current Visit: Yes Status: Chronic Qualifiers: Anemia type: due to chronic kidney disease Plan to address problem: Due to chronic kidney disease Epogen as per nephrology (5) Aspiration pneumonia Current Visit: Yes Status: Acute Plan to address problem: As per ER physician Patient is not short of breath and no fever Chest x-ray does not show any pneumonitis Empiric IV antibiotics for 24 hours Check prolactin level and discontinue IV antibiotics if prolactin level is normal (6) DVT prophylaxis Current Visit: Yes Status: Acute Plan to address problem: Anticoagulation GI prophylaxis (7) Advance care planning Current Visit: Yes Status: Acute Plan to address problem: Disease education conducted, care plan discussed, diagnosis discussed, prognosis discussed. Patient is full code. Patient acknowledges understanding and agreement with care plan. +30 minutes.
[2022-01-12] MEDS ORDERED: MORPHINE 2 MG/1 ML INJ IV PRN (16:30)
[2022-01-12] MEDS ORDERED: ACETAMINOPHEN 325 MG TAB PO PRN (16:30)
[2022-01-12] MEDS ORDERED: METOCLOPRAMIDE 10 MG/2 ML INJ IV PRN (16:30)
[2022-01-12] MEDS ORDERED: ONDANSETRON 4 MG/2 ML INJ IV PRN (16:30)
[2022-01-12 17:36] LABS: Hepatitis B Surface Antigen Non-Reactive (Negative); Hepatitis C Virus Antibody Non-Reactive (NonReactive)
--- NOTE | 2022-01-12 20:17 | Electrocardiograph Report ---
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
[2022-01-12] MEDS: PIPERACIL-TAZO 2.25 GM/50 ML 2.25 GM/50 ML BAG IV SCH (22:30)
[2022-01-13] MEDS: HEPARIN 5,000 UNIT/1 ML VIAL SUB-Q SCH ×2 (01:01→09:03)
[2022-01-13] MEDS ORDERED: hydrALAZINE 20 MG/1 ML INJ IV PRN ×2 (04:27→06:16)
[2022-01-13 04:51] LABS: Basophils % (Auto) 0.5 % (0.0-1.8); Eosinophils # (Auto) 0.1 K/mm3 (0.0-0.4); Eosinophils % (Auto) 1.1 % (0.0-4.3); Hematocrit 24.7 % (30.3-42.9); Hemoglobin 8.2 gm/dl (10.1-14.3); Lymphocytes # (Auto) 0.9 K/mm3 (1.2-5.4); Lymphocytes % (Auto) 13.2 % (13.4-35.0); Mean Corpuscular HGB Conc 33 % (30-34); Mean Corpuscular Volume 96 fl (79-97); Monocytes # (Auto) 0.6 K/mm3 (0.0-0.8); Monocytes % (Auto) 9.6 % (0.0-7.3); Platelet Count 265 K/mm3 (140-440); Red Blood Count 2.57 M/mm3 (3.65-5.03); Red Cell Distribution Width 17.6 % (13.2-15.2)
[2022-01-13 05:22] LABS: Albumin 4.5 g/dL (3.9-5); Calcium 8.9 mg/dL (8.4-10.2)
[2022-01-13] MEDS: PIPERACIL-TAZO 2.25 GM/50 ML 2.25 GM/50 ML BAG IV SCH (05:31)
--- NOTE | 2022-01-13 08:38 | XRay Report ---
CHEST 2 VIEWS INDICATION / CLINICAL INFORMATION: cough,fever. COMPARISON: January 12, 2022 FINDINGS: SUPPORT DEVICES: None. HEART / MEDIASTINUM: Cardiomegaly LUNGS / PLEURA: Mild elevation left hemidiaphragm No pneumothorax. ADDITIONAL FINDINGS: No significant additional findings. IMPRESSION: No significant interval change Signer Name: Jesus Mercado MD Signed: 01/13/2022 8:33 AM Workstation Name: [id number]
[2022-01-13] MEDS: PANTOPRAZOLE 20 MG TAB PO SCH ×2 (08:53→10:00)
[2022-01-13] MEDS: hydrALAZINE 100 MG TAB PO SCH ×2 (08:54→17:15)
[2022-01-13] MEDS: NIFEdipine XL 60 MG TAB PO SCH ×2 (08:56→10:00)
--- NOTE | 2022-01-13 10:21 | Progress Note ---
Assessment and Plan Assessment ESRD on HD Suspected Seizure Altered mental status Hypoglycemia Hemoptysis HTN Anemia Hypokalemia Plan: -Hemodialysis today for UF and clearance, no heparin during HD -Anemia- Epogen 10,000 units with HD -On D10 infusion for hypoglycemia -On renal diet -Fluid restriction of 1L per day -Renally dose medications -Strict intake and output -This pt undergoes OP HD at [facility] -Renal plan reviewed by Dr Person Subjective Date of service: 01/13/22 Principal diagnosis: ESRD Interval history: Patient seen lying in bed. Reviewed renal plan for HD today. Objective - Vital Signs Vital signs: Vital Signs - 12hr 01/12/22 01/13/22 01/13/22 22:33 03:15 03:44 Temperature Pulse Rate 90 79 Blood Pressure 160/62 210/91 O2 Sat by Pulse 98 98 Oximetry 01/13/22 01/13/22 01/13/22 05:30 07:49 08:53 Temperature 99.6 F Pulse Rate 80 80 Blood Pressure 210/91 175/76 175/76 O2 Sat by Pulse 100 Oximetry 01/13/22 08:54 Temperature Pulse Rate 80 Blood Pressure 175/76 O2 Sat by Pulse Oximetry - General Appearance General appearance: well-developed, appears stated age EENT: ATNC, PERRL, hearing intact, vision intact Neck: no JVD, supple Respiratory: Present: Decreased Breath Sounds Cardiology: S1S2 Gastrointestinal: normoactive bowel sounds Integumentary: warm and dry Neurologic: alert and oriented x3 Musculoskeletal: other (No edema) - Lab 01/13/22 03:39 01/13/22 03:39 Most recent lab results Calcium 8.9 mg/dL (8.4-10.2) 01/13/22 03:39 Magnesium 2.20 mg/dL (1.7-2.3) 01/12/22 10:56 Medications & Allergies - Medications Allergies/Adverse Reactions: Allergies acetaminophen [From Percocet] Allergy (Verified 01/12/22 09:20) Itching oxycodone HCl [From Percocet] Allergy (Verified 01/12/22 09:20) Itching Home Medications: Home Medications Medication Instructions Recorded Confirmed Last Taken Type Hydralazine HCl [hydrALAZINE] 100 mg PO TID 03/10/14 03/10/14 03/10/14 History Mag Hydrox/Aluminum Hyd/Simeth 30 ml PO QID #1 bottle 03/10/14 Unknown Rx [Maalox Advanced Suspension] NIFEdipine XL [Procardia Xl] 60 mg PO QDAY 03/10/14 03/10/14 03/09/14 History Omeprazole [Prilosec] 20 mg PO QDAY #30 capsule. 03/10/14 Unknown Rx Ondansetron [Zofran] 4 mg PO Q8HR PRN 03/10/14 03/10/14 Unknown History Promethazine [Phenergan] 25 mg PO Q6H PRN 03/10/14 03/10/14 Unknown History labetaloL [Normodyne] 200 mg PO QID 03/10/14 03/10/14 03/10/14 History Active Medications: Generic Name Dose Route Start Last Admin Trade Name Freq PRN Reason Stop Dose Admin Acetaminophen 650 mg 01/12/22 16:30 Acetaminophen 325 Mg Tab PO Q4H PRN Pain MILD(1-3)/Fever >100.5/WRIGHT Dextrose 50 ml 01/12/22 12:41 01/12/22 22:34 Dextrose 50% In Water (25gm) 50 Ml Syringe IV 50 ml Q30MIN PRN Administration Hypoglycemia Protocol Heparin Sodium (Porcine) 5,000 unit 01/12/22 17:00 01/13/22 09:03 Heparin 5,000 Unit/1 Ml Vial SUB-Q 5,000 unit Q12HR SUMMER Administration Hydralazine HCl 100 mg 01/13/22 08:00 01/13/22 08:54 Hydralazine 100 Mg Tab PO 100 mg Q8H SUMMER Administration Hydralazine HCl 10 mg 01/13/22 06:16 Hydralazine 20 Mg/1 Ml Inj IV Q3H PRN Blood Pressure Dextrose 1,000 mls @ 100 mls/hr 01/12/22 13:00 D10w IV DIRECT SUMMER Piperacillin Sod/Tazobactam Sod 2.25 gm in 50 mls @ 100 mls/hr 01/12/22 22:00 01/13/22 05:31 Zosyn/Ns 2.25 Gm/50ml IV 100 mls/hr Q8H SUMMER Administration Protocol Labetalol HCl 200 mg 01/13/22 10:00 01/13/22 08:54 Labetalol 200 Mg Tab PO 200 mg QID SUMMER Administration Metoclopramide HCl 5 mg 01/12/22 16:30 Metoclopramide 10 Mg/2 Ml Inj IV Q6H PRN Nausea And Vomiting Morphine Sulfate 2 mg 01/12/22 16:30 Morphine 2 Mg/1 Ml Inj IV Q4H PRN Pain, Moderate (4-6) Nifedipine 60 mg 01/13/22 10:00 01/13/22 08:56 Nifedipine Xl 60 Mg Tab PO 60 mg QDAY@0600 SUMMER Administration Ondansetron HCl 4 mg 01/12/22 16:30 Ondansetron 4 Mg/2 Ml Inj IV Q8H PRN Nausea And Vomiting Pantoprazole Sodium 20 mg 01/13/22 10:00 01/13/22 08:53 Pantoprazole 20 Mg Tab PO 20 mg QDAY SUMMER Administration Sodium Chloride 10 ml 01/12/22 17:00 01/13/22 01:03 Sodium Chloride 0.9% 10 Ml Flush Syringe IV 10 ml BID SUMMER Administration Sodium Chloride 10 ml 01/12/22 16:30 Sodium Chloride 0.9% 10 Ml Flush Syringe IV PRN PRN LINE FLUSH
[2022-01-13] MEDS ORDERED: DEXTROSE 10% IN WATER 1,000 ML IV SCH (11:00)
--- NOTE | 2022-01-13 12:49 | Discharge Summary ---
Providers - Providers Date of Admission: 01/12/22 16:36 Date of discharge: 01/13/22 Attending physician: CHARITO BAIG 01/12/22 08:44 Consult to Physician [CONS] Stat Comment: Consulting Provider: JAMES HEARN Physician Instructions: Reason For Exam: esrd Primary care physician: MARTÍN NEGRO Hospitalization Condition: Serious Hospital course: 46-year-old female with history of hypertension and end-stage renal disease needing hemodialysis session this past Wednesday. She had dialysis on . Today is Wednesday. Patient has a history of end-stage renal disease, hypertension, anemia. Shortness of breath on minimal exertion. No fever or chills. Orthopnea present. Patient is vaccinated against COVID. Her nephrolo gist is from outside. ER physician has presented to me as possible aspiration pneumonia which was not confirmed. No fever or chills. No pneumonitis on the chest x-ray. 01/12/2022 Patient had hemodialysis today Post hemodialysis patient feels better No fever or cough Assessment and Plan Advance Directives: Yes (Full code) VTE prophylaxis?: Chemical Plan of care discussed with patient/family: Yes - Patient Problems (1) Volume overload Current Visit: Yes Status: Acute Plan to address problem: Patient comfortable after removal of volume done (2) End-stage renal disease on hemodialysis Current Visit: Yes Status: Chronic Plan to address problem: Emergent hemodialysis 6 (3) Hypertension Current Visit: Yes Status: Chronic Qualifiers: Hypertension type: primary hypertension Qualified Code(s): I10 - Essential (primary) hypertension Plan to address problem: Continue antihypertensives and adjust medications as necessary (4) Anemia Current Visit: Yes Status: Chronic Qualifiers: Anemia type: due to chronic kidney disease Plan to address problem: Due to chronic kidney disease Epogen as per nephrology (5) Aspiration pneumonia Current Visit: Yes Status: Acute Plan to address problem: Unlikely No need for further antibiotics (6) DVT prophylaxis Current Visit: Yes Status: Acute Plan to address problem: Anticoagulation GI prophylaxis (7) Advance care planning Current Visit: Yes Status: Acute Plan to address problem: Disease education conducted, care plan discussed, diagnosis discussed, prognosis discussed. Patient is full code. Patient acknowledges understanding and agreement with care plan. +30 minutes. Disposition: HOME / SELF CARE / HOMELESS Final Discharge Diagnosis (Prints w/discharge instructions): Volume overload. End-stage renal disease on hemodialysis. Hypertension. Anemia - Discharge Diagnoses (1) Volume overload Status: Acute (2) End-stage renal disease on hemodialysis Status: Chronic (3) Hypertension Status: Chronic Qualifiers: Hypertension type: primary hypertension Qualified Code(s): I10 - Essential (primary) hypertension (4) Anemia Status: Chronic Qualifiers: Anemia type: due to chronic kidney disease (5) Aspiration pneumonia Status: Acute (6) DVT prophylaxis Status: Acute (7) Advance care planning Status: Acute Core Measure Documentation - Palliative Care Palliative Care/ Comfort Measures: Not Applicable - Core Measures Any of the following diagnoses?: none Exam - Constitutional Vitals: Temp Pulse Resp BP Pulse Ox 99.6 F 80 18 175/76 97 01/13/22 07:49 01/13/22 08:54 01/12/22 21:50 01/13/22 08:54 01/13/22 11:57 General appearance: Present: no acute distress, well-nourished - EENT Eyes: Present: PERRL ENT: hearing intact, clear oral mucosa - Neck Neck: Present: supple, normal ROM - Respiratory Respiratory effort: normal Respiratory: bilateral: CTA - Cardiovascular Heart rate: 78 Rhythm: regular Heart Sounds: Present: S1 & S2. Absent: rub, click - Extremities Extremities: no ischemia, pulses symmetrical, No edema Peripheral Pulses: within normal limits - Abdominal General gastrointestinal: Present: soft, non-tender, non-distended, normal bowel sounds Female genitourinary: Present: normal - Integumentary Integumentary: Present: clear, warm, dry - Musculoskeletal Musculoskeletal: gait normal, strength equal bilaterally - Psychiatric Psychiatric: appropriate mood/affect, intact judgment & insight - Neurologic Neurologic: CNII-XII intact, moves all extremities - Allied Health Allied health notes reviewed: nursing, case management Plan Activity: no restrictions Diet: renal Follow up with: MARTÍN NEGRO MD [Primary Care Provider] - 3-5 Days
[2022-01-13 17:09] VITALS: BP 131/67
== END 2022-01-13 19:45 | disposition home or self-care (01) ==
LOC: ED 08:25 → 4A 16:36 → INTOOBSV 16:36 → 4A 18:43
PROVIDERS: ADMIT Internal Medicine; ATTEND Internal Medicine
DX: E87.70 Fluid overload, unspecified (principal); I16.0 Hypertensive urgency; I13.2 Hypertensive heart and chronic kidney disease with heart failure and with stage 5 chronic kidney disease, or end stage renal disease; I50.9 Heart failure, unspecified; N18.6 End stage renal disease; D63.1 Anemia in chronic kidney disease; J18.9 Pneumonia, unspecified organism; E16.2 Hypoglycemia, unspecified; F17.210 Nicotine dependence, cigarettes, uncomplicated; R04.2 Hemoptysis; Z79.82 Long term (current) use of aspirin; Z79.899 Other long term (current) drug therapy; Z98.890 Other specified postprocedural states
CPT/HCPCS: 36415; 70450; 71045; 71046; 71275; 80053; 80074; 82550; 82962; 83735; 83880; 84145; 85025; 85610; 85730; 86850; 86900; 86901; 93005; 96365; 96366; 96367; 96372; 96375; 96376; 99291; 99406; G0257; G0378; J0360; J1644; J2270; J2543; J3490; J7050; Q0163; Q9967; 85007